=== PATIENT | female | born 1940 | race Caucasian/White ===

== ENCOUNTER 2019-08-16 05:49 | Emergency (ER) | payer MEDICARE ==
[~2019-08-16] VITALS: Ht 180.3 cm; Wt 84.2 kg
[~2019-08-16 05:49] MED LIST: ASPI-496 PO; DOCU-131 PO; EZET10TA70 PO; HYDR-3240 PO; LEVO125T PO; LEVO25TA2 PO; OMEP-110 PO; OMEP20TA62 PO; POLY17PO5 PO; TAMS-11 PO
[2019-08-16] MEDS ORDERED: ONDANSETRON ODT 4 MG PO ONE (06:30)
[2019-08-16] MEDS ORDERED: MECLIZINE CHEWABLE 25 MG TAB PO ONE (06:30)
[2019-08-16] MEDS ORDERED: ONDANSETRON ODT 4 MG ONE (06:32)
--- NOTE | 2019-08-16 06:38 | NUR ---
BROCK WOULD NOT ACKNOWLEDGE ANTIVERT PULL. TIMBER FALLER AND PHARMACY INFORMED. PT MEDICATED WITH ANTIVERT AND ZOFRAN ODT. PT AND SPOUSE DENY FURTHER NEEDS AT THIS TIME.
--- NOTE | 2019-08-16 06:42 | NUR ---
PT TO CT NOW
--- NOTE | 2019-08-16 06:43 | NUR ---
REPORT TO RADHA BOWMAN
[2019-08-16 06:55] LABS: BASOPHILS # (AUTO) 0.03 x10^3/uL (0-0.1); BASOPHILS % (AUTO) 1 % (0-1); EOSINOPHILS # (AUTO) 0.17 x10^3/uL (0-0.4); EOSINOPHILS % (AUTO) 2 % (1-7); LYMPHOCYTES # (AUTO) 1.38 x10^3/uL (1-3.4); LYMPHOCYTES % (AUTO) 19 % (22-44); MD NO; MEAN CORPUSCULAR HEMOGLOBIN 29.9 pg (27.0-34.8); MEAN CORPUSCULAR HGB CONC 32.6 g/dL (32.4-35.8); MEAN CORPUSCULAR VOLUME 91.8 fL (80-100); MEAN PLATELET VOLUME 7.4 fL (7.4-10.4); MONOCYTES # (AUTO) 0.47 x10^3/uL (0.2-0.8); MONOCYTES % (AUTO) 6 % (2-9); NEUTROPHILS # (AUTO) 5.36 x10^3/uL (1.8-6.8); NEUTROPHILS % (AUTO) 72 % (42-75); PLATELET COUNT 229 x10^3/uL (130-400); RED BLOOD COUNT 5.28 x10^6/uL (3.82-5.3); RED CELL DISTRIBUTION WIDTH 14.3 % (9.6-15.2)
--- NOTE | 2019-08-16 06:56 | NUR ---
ASSUMED CARE. PT RETURNED FROM CT AND AWAITING DISPO
[2019-08-16 07:03] LABS: ALBUMIN 3.7 g/dL (3.4-5.0); ANION GAP 5 mmol/L (5-15); CALCIUM 9.2 mg/dL (8.5-10.1); CHLORIDE 110 mmol/L (98-107)
[2019-08-16 07:05] LABS: CREATININE 0.72 mg/dL (0.55-1.02)
[2019-08-16 07:51] VITALS: BP 141/87
== END 2019-08-16 07:53 | disposition home or self-care (01) ==
LOC: ED 06:28
DX: R42 Dizziness and giddiness (principal)
CPT/HCPCS: 36415; 70450; 71045; 80048; 82040; 85025; 93005; 99284; Q0162